=== PATIENT | female | born 1995 | race Two or more races ===

== ENCOUNTER → 2019-09-20 | Outpatient (CLI) | payer OTHER | END | disposition home or self-care (01) | LOC: PRENATAL 14:36 | DX: Z36.89 Encounter for other specified antenatal screening (principal); O36.80X1 Pregnancy with inconclusive fetal viability, fetus 1 ==

== ENCOUNTER → 2019-11-08 | Outpatient (CLI) | payer OTHER | END | disposition home or self-care (01) | LOC: PRENATAL 08:00 | PROVIDERS: ATTEND Obstetrics & Gynecology | DX: O35.0XX1 Maternal care for (suspected) central nervous system malformation in fetus, fetus 1 (principal); O35.3XX1 Maternal care for (suspected) damage to fetus from viral disease in mother, fetus 1 ==

== ENCOUNTER 2020-02-12 15:06 | Inpatient (IN) | payer OTHER ==
[~2020-02-12] VITALS: Ht 154.9 cm; Wt 80.3 kg
[2020-02-12] MEDS ORDERED: PRENATAL CAPLE1 EAC1 PO (16:06)
[2020-02-14] MEDS ORDERED: KEFLEX500 MG PO (12:32)
== END 2020-02-14 13:56 | disposition home or self-care (01) | DRG 832 ==
LOC: LDR 15:06
PROVIDERS: ADMIT Obstetrics & Gynecology; ATTEND Obstetrics & Gynecology
PROC: 4A0HXFZ Measurement of Products of Conception, Cardiac Rhythm, External Approach (ICD-10-PCS; principal; 2020-02-12)
PROC: BT41ZZZ Ultrasonography of Right Kidney (ICD-10-PCS; 2020-02-12)
PROC: BT41ZZZ Ultrasonography of Right Kidney (ICD-10-PCS; 2020-02-14)
PROC: BY4FZZZ Ultrasonography of Third Trimester, Single Fetus (ICD-10-PCS; 2020-02-14)
DX: O60.03 Preterm labor without delivery, third trimester (principal); N13.39 Other hydronephrosis; N20.0 Calculus of kidney; O99.89 Other specified diseases and conditions complicating pregnancy, childbirth and the puerperium; Z3A.34 34 weeks gestation of pregnancy; R31.9 Hematuria, unspecified; O35.0XX0 Maternal care for (suspected) central nervous system malformation in fetus, not applicable or unspecified

== ENCOUNTER 2020-03-10 10:22 | Inpatient (IN) | payer OTHER ==
[~2020-03-10] VITALS: Ht 152.4 cm; Wt 3.6 kg
[~2020-03-10 10:22] MED LIST: KEFLEX500 MG PO; PRENATAL CAPLE1 EAC1 PO
[2020-03-14] MEDS ORDERED: IBUPROFEN800 MG PO (07:00)
[2020-03-14] MEDS ORDERED: DOCUSATE SODIU100 MG PO (07:00)
== END 2020-03-14 12:41 | DRG 788 ==
LOC: LDR 10:22 → OB/GYN 03-11 21:38
PROVIDERS: ADMIT Obstetrics & Gynecology; ATTEND Obstetrics & Gynecology
PROC: BY4FZZZ Ultrasonography of Third Trimester, Single Fetus (ICD-10-PCS; 2020-03-10)
PROC: 4A1HXCZ Monitoring of Products of Conception, Cardiac Rate, External Approach (ICD-10-PCS; 2020-03-11)
PROC: 10D00Z1 Extraction of Products of Conception, Low, Open Approach (ICD-10-PCS; principal; 2020-03-11 20:00)
DX: O41.03X0 Oligohydramnios, third trimester, not applicable or unspecified (principal); O76 Abnormality in fetal heart rate and rhythm complicating labor and delivery; O36.8130 Decreased fetal movements, third trimester, not applicable or unspecified; O26.843 Uterine size-date discrepancy, third trimester; O82 Encounter for cesarean delivery without indication; Z3A.38 38 weeks gestation of pregnancy; Z37.0 Single live birth